=== PATIENT | male | born 1950 | race Caucasian/White ===

== ENCOUNTER → 2018-09-05 | Outpatient (CLI) | payer MEDICARE ==
[2015-03-10 07:00] VITALS: BP 132/81
[~2018-09-05] MED LIST: ADAL40PE SQ; ASPI325T11 PO; ATOR40TA59 PO; CLOP75TA PO; HYDR200T5 PO; LEFLUNOMIDE20 MG PO; LISI2.5T PO; METO25TA4 PO; PANT40TA5 PO; SULF500T7 PO; TERA5CAP3 PO; TRAM50TA PO
--- NOTE | 2018-09-05 11:24 | CARD ---
MR#: [id number] Date of Study: 09/05/2018 Ordering Physician: BRENDON BILLS, Referring Physician: BRENDON BILLS Tech: Margarita Wells RDCS APPROVED REPORT EXAM: Two-dimensional and M-mode echocardiogram with Doppler and color Doppler. Other Information Quality : GoodHR: 78bpm INDICATION EDEMA 2D DIMENSIONS RVDd3.2 (2.9-3.5cm)Left Atrium(2D)3.6 (1.6-4.0cm) IVSd1.1 (0.7-1.1cm)Aortic Root(2D)3.1 (2.0-3.7cm) LVDd5.4 (3.9-5.9cm)LVOT Diameter2.2 (1.8-2.4cm) PWd1.0 (0.7-1.1cm)LVDs4.3 (2.5-4.0cm) FS (%) 19.8 %SV55.6 ml Aortic Valve AoV Peak Slim.157.1cm/sAoV VTI29.7cm AO Peak GR.9.9mmHgLVOT Peak Slim.101.0cm/s AO Mean GR.5mmHgAVA (VMAX)2.34cm2 OTIS (VTI)2.30cm2 Mitral Valve MV E Ofegqjow85.4cm/sMV DECEL MXOQ585fb MV A Hpvpnccl95.2cm/sE/A Ratio0.8 MV A Lygxxhkr889db Pulmonary Valve PV Peak Emmvsocq313.8cm/s Tricuspid Valve TR P. Tspwrujl750jn/sRAP XDEUWTQJ8toLs TR Peak Gr.36xyIlSGKM75vbNl Pulmonary Vein S1 Rqcfrkkh47.5cm/sD2 Kkxemyny95.8cm/s PVa tffxbuvf120hgno LEFT VENTRICLE The Left Ventricle is borderline dilated. There is borderline concentric left ventricular hypertrophy . The ejection fraction is moderate to moderately severely impaired. The Ejection Fraction is 30-35%. There is global hypokinesis of the left ventricle. Transmitral Doppler flow pattern is Grade I-abnor mal relaxation pattern. RIGHT VENTRICLE The right ventricle is normal size. There is normal right ventricular wall thickness. The right ventr icular systolic function is normal. ATRIA The left atrium size is normal. The right atrium size is normal. The interatrial septum is intact wit h no evidence for an atrial septal defect or patent foramen ovale as noted on 2-D or Doppler imaging. AORTIC VALVE The aortic valve is trileaflet. The aortic valve is normal in structure and function. Doppler and Col or Flow revealed no significant aortic regurgitation. There is no significant aortic valvular stenosi s. MITRAL VALVE The mitral valve is thickened but opens well. There is no evidence of mitral valve prolapse. There is no mitral valve stenosis. Doppler and Color-flow revealed mild mitral regurgitation. TRICUSPID VALVE The tricuspid valve is normal in structure and function. Doppler and Color Flow revealed no tricuspid valve regurgitation noted. There is no tricuspid valve prolapse or vegetation. There is no tricuspid valve stenosis. PULMONIC VALVE Pulmonic valve not well visualized. GREAT VESSELS The aortic root is normal in size. The ascending aorta is normal in size. The IVC is normal in size a nd collapses >50% with inspiration. PERICARDIAL EFFUSION There is no evidence of significant pericardial effusion. Critical Notification Critical Value: No <Conclusion> The Left Ventricle is borderline dilated. The ejection fraction is moderate to moderately severely impaired. The Ejection Fraction is 30-35%. There is global hypokinesis of the left ventricle. There is borderline concentric left ventricular hypertrophy. There is no significant aortic valvular stenosis. Doppler and Color Flow revealed no significant aortic regurgitation. Doppler and Color-flow revealed mild mitral regurgitation. Doppler and Color Flow revealed no tricuspid valve regurgitation noted. Signed by : Cesar Ruiz MD Electronically Approved : 09/05/2018 11:23:01
--- NOTE | 2018-09-06 12:23 | RAD ---
MR#: [id number] Date of Study: 09/05/2018 Ordering Physician: BRENDON BILLS, Referring Physician: BRENDON BILLS Tech: Dolly Cummins, RUBEN, RVT, RTR APPROVED REPORT Patient Location: OUT-PATIENT Indications bilateral Leg pain with edema Risk Factors Diabetes VELOCITY AND DOPPLER WAVEFORM ANALYSIS RIGHT cm/secWaveformSeverity LEFT cm/secWaveform Severity pCFA 172.5TriphasicpCFA 199.0Triphasic dCFA 155.6TriphasicdCFA 152.7Triphasic Prof Fem Art. 128.3TriphasicProf Fem Art. 128.9Triphasic Fem Art Prox. 143.0TriphasicFem Art Prox. 132.2Triphasic Fem Art Mid. 114.0TriphasicFem Art Mid. 120.6Triphasic Fem Art Dist. 109.9TriphasicFem Art Dist. 97.5Triphasic Pop Art(AK) 73.3TriphasicPop Art(AK) 85.9Triphasic TIE BUCKER Prox. 87.4TriphasicPTA Prox. 50.0Triphasic TIE BUCKER Dist. 123.1TriphasicPTA Dist. 137.8Triphasic Per Art Prox. 76.5TriphasicPer Art Prox. 106.6Triphasic ZEE Prox. 87.4TriphasicATA Prox. 105.3Triphasic DPA 138.8TriphasicDPA 138.8Triphasic Findings Grayscale images of the bilateral lower extremity arterial vessels were obtained and did not reveal a ny evidence of significant obstructive plaque. Spectral waveforms are grossly within normal limits bilaterally with mostly triphasic waveforms. Velo cities are minimally elevated in the bilateral common femoral arteries and the below-knee vessels at the level of the anterior tibial artery and dorsalis pedis artery but no focal obstruction is noted. Critical Notification Critical Value: No <Conclusion> 1. No focal high-grade disease noted in the bilateral lower extremity arterial vessels. Signed by : Issa Hein, Electronically Approved : 09/06/2018 12:21:57
== END | disposition home or self-care (01) ==
LOC: US 10:00
PROVIDERS: ATTEND Internal Medicine Cardiovascular Disease
DX: I34.0 Nonrheumatic mitral (valve) insufficiency (principal); R60.0 Localized edema
CPT/HCPCS: 93306; 93925

== ENCOUNTER 2018-10-09 06:25 | Outpatient (CLI) | payer MEDICARE ==
[~2018-10-09] VITALS: Ht 172.7 cm; Wt 88.5 kg
[2018-10-09] VITALS (12 sets, daily range): BP systolic 107–140; BP diastolic 58–74
[~2018-10-09 06:25] MED LIST changes: -PANT40TA5 PO; +PANT40TA77 PO
[2018-10-09] MEDS ORDERED: METO5TAB4 PO (07:01)
[2018-10-09] MEDS ORDERED: LOSA25TA PO (07:01)
[2018-10-09] MEDS ORDERED: FURO40TA4 PO (07:01)
[2018-10-09] MEDS ORDERED: ASPI325T8 PO (07:01)
[2018-10-09] MEDS ORDERED: ADAL40PE SQ (07:02)
[2018-10-09 07:03] LABS: HEMATOCRIT 40.3 % (39.0-53.0); HEMOGLOBIN 13.8 g/dL (13.0-17.5); RED BLOOD COUNT 4.55 x10^6/uL (4.30-5.70); RED CELL DISTRIBUTION WIDTH 13.2 % (11.5-14.5); WHITE BLOOD COUNT 8.7 x10^3/uL (4.0-11.0)
[2018-10-09] MEDS ORDERED: LIDOCAINE 1% PF 2 ML VIAL. ONE (07:06)
[2018-10-09] MEDS ORDERED: IODIXANOL 320 MG/ML 100 ML VIAL. ONE (07:06)
[2018-10-09 07:13] LABS: PROTHROMBIN TIME PATIENT 14.2 SEC (11.7-14.0)
[2018-10-09 07:14] LABS: CALCIUM 8.9 mg/dL (8.5-10.1); CREATININE 1.2 mg/dL (0.7-1.3); GFR 60.4; POTASSIUM 3.5 mmol/L (3.5-5.1)
[2018-10-09] MEDS ORDERED: fentaNYL PF VIAL 100 MCG/2 ML VIAL ONE (07:28)
[2018-10-09] MEDS ORDERED: HEPARIN for IV BOLUS 10,000 UNIT/10 ML VIAL. ONE (07:29)
[2018-10-09] MEDS ORDERED: NITROGLYCERIN 200 MCG/2 ML SYRINGE FOR CATH/VASC LAB. ONE (07:29)
[2018-10-09] MEDS ORDERED: MIDAZOLAM HCL/PF 2 MG/2 ML VIAL. ONE (07:29)
[2018-10-09] MEDS ORDERED: VERAPAMIL 5 MG/2 ML VIAL. ONE (07:29)
[2018-10-09] MEDS ORDERED: LIDOCAINE 1% PF 2 ML VIAL. INJ ONE (08:15)
[2018-10-09] MEDS ORDERED: IODIXANOL 320 MG/ML 100 ML VIAL. IART ONE (08:15)
[2018-10-09] MEDS ORDERED: NITROGLYCERIN 200 MCG/2 ML SYRINGE FOR CATH/VASC LAB. IART ONE (08:15)
[2018-10-09] MEDS ORDERED: MIDAZOLAM HCL/PF 2 MG/2 ML VIAL. IV ONE (08:15)
[2018-10-09] MEDS ORDERED: CONTRAST GIVEN. MC PRN (08:15)
[2018-10-09] MEDS ORDERED: VERAPAMIL 5 MG/2 ML VIAL. IART ONE (08:15)
[2018-10-09] MEDS ORDERED: HEPARIN for IV BOLUS 10,000 UNIT/10 ML VIAL. IART ONE (08:15)
[2018-10-09] MEDS ORDERED: fentaNYL PF VIAL 100 MCG/2 ML VIAL IV ONE (08:15)
[2018-10-09] MEDS ORDERED: LIDOCAINE 1% PF 30 ML VIAL. ONE (08:20)
--- NOTE | 2018-10-09 08:53 | PDOC ---
MODERATE SEDATION ASSESSMENT RISKS/ALTERNATIVES Risks/Alternatives Risks and alternatives of this type of sedation and procedure discussed with: RISK/ALTERNATIVES: Patient H & P ON CHART H & P H & P on chart and reviewed for co-morbid conditions and appropriate labs. H&P ON CHART: Yes STATUS PREG STATUS ASSESSED: N/A MEDS/ALLERGIES REVIEWED Meds/Allergies Reviewed Medications and Allergies including time and route of recently administered narcotics and sedatives. MEDS/ALLERGIES REVIEWED: Yes ASA RATING ASA RATING: II AIRWAY ASSESSMENT Airway Assessment Airway patency, oral function limitations, presence of caps, crowns, dentures, partials, and ability to extend neck assessed. AIRWAY ASSESSMENT: Yes MALLAMPATI SCORE MALLAMPATI SCORE: II PRE-SEDATION ASSESSMENT PRE-SEDATION ASSESSMENT: Yes BRENDON BILLS MD Oct 09, 2018 08:53
[2018-10-09] MEDS ORDERED: LIDOCAINE 1% PF 30 ML VIAL. INJ ONE (09:00)
[2018-10-09] MEDS ORDERED: NITROGLYCERIN SUBLINGUAL 0.4 MG BOTTLE OF 25. SL PRN (09:00)
[2018-10-09] MEDS ORDERED: 0.9 % SODIUM CHLORIDE 10 ML DISP.SYRIN. IV PRN (09:00)
--- NOTE | 2018-10-09 09:09 | CARD ---
MR#: [id number] Date of Study: 10/09/2018 Ordering Physician: BRENDON MCKNIGHT, Referring Physician: BRENDON MCKNIGHT Tech: RT Juwan (R) APPROVED REPORT Technologist: RT Juwan (R) Nurse: Randi Jewell RN Procedure(s) performed: Left heart catheterization, selective coronary angiography and left ventricul ography Sedation Time: 42 Minutes INDICATION The indication(s) include : Cardiomyopathy. PROCEDURE NARRATIVE After explaining the risks, benefits and alternative options, informed consent was obtained from boy ent. Patient was brought to the cardiac Developmental Mathematics Instructor and his right groin was prepped and draped in the us ual fashion. 20 mL of 2% lidocaine was infiltrated into the skin and subcutaneous tissues for local a nesthesia. Arterial access was obtained in the right common femoral artery and a 6 [place] sheath was inserted. 6 [place] JL4 and 6 [place] JR4 catheters were used to perform selective angiography of the l eft and right coronary arteries. 6 [place] pigtail catheter was used to perform left ventriculography. Patient tolerated the procedure well. Hemostasis was achieved using Angio-Seal. There were no immedi ate complications. FINDINGS 1. Hemodynamics: Left ventricular end-diastolic pressure 17 mmHg. No pullback gradient across the a ortic valve. 2. Left ventriculography: Moderate left ventricle systolic dysfunction with ejection fraction estim ated at 30-35%. No significant mitral regurgitation seen. 3. Coronary angiography: a. The left main coronary artery arose from the left sinus of Valsalva, gave rise to the left anteri or descending and left circumflex arteries and did not show any significant stenosis. b. The left anterior descending artery did not show any significant stenosis. c. The left circumflex artery did not show any significant stenosis. d. The right coronary artery arose from the right sinus of Valsalva and showed widely patent stent i n the midsegment. Conclusion 1. Widely patent previously placed stent in the right coronary artery without any significant stenos is. 2. Moderate left ventricle systolic dysfunction with ejection fraction estimated at 30-35%. Recommendations Optimization of medical therapy for nonischemic cardiomyopathy. Repeat 2-D echo in 3 months to evaluate the need for AICD implantation. Signed by : Brendon Mcknight, Electronically Approved : 10/09/2018 09:07:05
[2018-10-09] MEDS ORDERED: IV 1/2 NORMAL SALINE 1,000 ML IV SCH (09:30)
--- NOTE | 2018-10-09 13:16 | NUR ---
discharge instructions reviewed with patient and family. pt stated understanding. Pt tolerated PO and ambulated without difficulty. Pt home with family
== END 2018-10-09 13:18 | disposition home or self-care (01) ==
LOC: CCL 06:25
PROVIDERS: ATTEND Internal Medicine Cardiovascular Disease
DX: I42.9 Cardiomyopathy, unspecified (principal); I11.0 Hypertensive heart disease with heart failure; I50.33 Acute on chronic diastolic (congestive) heart failure; M06.9 Rheumatoid arthritis, unspecified; I44.7 Left bundle-branch block, unspecified; E78.5 Hyperlipidemia, unspecified; Z86.79 Personal history of other diseases of the circulatory system; Z98.890 Other specified postprocedural states; Z79.01 Long term (current) use of anticoagulants; Z79.899 Other long term (current) drug therapy; Z87.891 Personal history of nicotine dependence; Z88.1 Allergy status to other antibiotic agents; Z88.8 Allergy status to other drugs, medicaments and biological substances; Z88.0 Allergy status to penicillin; Z91.030 Bee allergy status
CPT/HCPCS: 36415; 80048; 85027; 85610; 93458; 99152; 99153; C1769; C1892; J1644; J2250; J3010; Q9967; C1760; G0269; C1771

== ENCOUNTER 2019-02-19 13:30 | Inpatient (IN) | payer MEDICARE ==
[2019-02-19] VITALS (11 sets, daily range): BP systolic 117–173; BP diastolic 61–86
[~2019-02-19] VITALS: Ht 172.7 cm; Wt 91.3 kg
[~2019-02-19 13:30] MED LIST changes: +ASPI325T8 PO; +FURO40TA4 PO; +IV RINGERS,LACTATED 1000ML 1,000 ML IV SCH; +LOSA25TA PO; +METO5TAB4 PO; +PANT40TA5 PO; -PANT40TA77 PO
[2019-02-19] MEDS ORDERED: BACITRACIN 50,000 UNIT in IV NORMAL SALINE 250ML 250 ML IRR ONE (14:00)
--- NOTE | 2019-02-19 14:10 | EKG ---
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
[2019-02-19] MEDS ORDERED: VANCOMYCIN 1GM IVPB FOR OMNI 250 ML IV ONE (14:15)
[2019-02-19 14:17] LABS: HEMATOCRIT 43.1 % (39.0-53.0); HEMOGLOBIN 14.1 g/dL (13.0-17.5); RED BLOOD COUNT 4.99 x10^6/uL (4.30-5.70); WHITE BLOOD COUNT 8.3 x10^3/uL (4.0-11.0)
[2019-02-19] MEDS ORDERED: PROPOFOL 20 ML IV ONE (14:33)
[2019-02-19] MEDS ORDERED: PROPOFOL 50 ML IV ONE (14:33)
[2019-02-19] MEDS ORDERED: MIDAZOLAM HCL/PF 2 MG/2 ML VIAL. ONE ×3 (14:34→15:40)
[2019-02-19 14:36] LABS: CALCIUM 9.2 mg/dL (8.5-10.1); GFR 74.5; POTASSIUM 4.2 mmol/L (3.5-5.1)
[2019-02-19] MEDS ORDERED: LIDOCAINE 2%/EPI 1:100,000 20 ML VIAL. ONE (14:51)
[2019-02-19] MEDS ORDERED: VANCOMYCIN 1GM IVPB FOR OMNI 250 ML ONE (15:00)
[2019-02-19] MEDS ORDERED: IODIXANOL 320 MG/ML 100 ML VIAL. ONE (15:03)
[2019-02-19] MEDS ORDERED: LIDOCAINE 2%/EPI 1:100,000 20 ML VIAL. IJ ONE (15:30)
[2019-02-19] MEDS ORDERED: fentaNYL PF VIAL 100 MCG/2 ML VIAL ONE (15:34)
--- NOTE | 2019-02-19 16:55 | NUR ---
Patient to rn cardiac cath for Internal Defibrillator placement patient had episode of Vfib at 1600, shocked X1 at 200J with successful return to sinus rhythm. Anesthesia at bedside during entire case for all sedation and monitoring.
[2019-02-19] MEDS ORDERED: CONTRAST GIVEN. MC PRN (17:00)
[2019-02-19] MEDS ORDERED: IODIXANOL 320 MG/ML 100 ML VIAL. IART ONE (17:00)
[2019-02-19] MEDS ORDERED: NO ANTICOAGULANT THERAPY. MC PRN (17:00)
--- NOTE | 2019-02-19 18:10 | RAD ---
AP portable chest radiograph 02/19/2019 Clinical History: Post pacemaker placement. An AP erect portable digital radiograph of the chest was obtained. Comparison study is dated 10/04/2018. A left-sided pacemaker has been placed. Leads extend to overlie the right atrium and right ventricle of heart. The cardiac silhouette is borderline enlarged. The thoracic aorta is mildly tortuous. No acute pulmonary infiltrate is seen. No pleural effusion or pneumothorax is noted. The osseous structures are unchanged. Impression: Interval placement of a left-sided pacemaker. No pneumothorax is seen. Electronically signed by: Donald Box MD (02/19/2019 6:06 PM) [facility]
[2019-02-19] MEDS ORDERED: traMADol 50 MG TABLET PO PRN (19:15)
[2019-02-19] MEDS ORDERED: TERAZOSIN 5 MG CAPSULE. PO SCH (21:00)
[2019-02-19] MEDS: LUBIPROSTONE 8 MCG CAPSULE PO SCH (21:49)
[2019-02-19] MEDS: HYDROXYCHLOROQUINE 200 MG TABLET PO SCH (21:50)
[2019-02-19] MEDS: sulfaSALAzine 500 MG TABLET PO SCH (21:54)
[2019-02-20] MEDS ORDERED: VANCOMYCIN 1 GM in IV DEXTROSE 5% 250 ML IV ONE (02:00)
[2019-02-20 03:30] VITALS: BP 161/80
[2019-02-20 07:00] VITALS: BP 157/83
--- NOTE | 2019-02-20 07:43 | CARD ---
MR#: [id number] Date of Study: 02/19/2019 Ordering Physician: BRENDON MCKNIGHT, Referring Physician: BRENDON MCKNIGHT, Tech: APPROVED REPORT EXAM Successful implantation of Biotronik biventricular implantable cardioverter defibrillator (Bi-V ICD/C RT-D) with defibrillation thresholds measurement of the time of implantation. INDICATIONS Primary prevention of sudden cardiac and cardiac resynchronization therapy in a patient with ch ronic systolic heart failure, ischemic cardiomyopathy and left bundle branch block. PROCEDURE After explaining the risks, benefits, and alternative options, informed consent was obtained from the patient. The patient was brought to the cardiac catheterization lab and the left chest and shoulder were prepp ed and draped in the usual fashion. 30 mL of 2% lidocaine was infiltrated into the skin and subcutaneous tissues for local anesthesia. An incision was made over the left infraclavicular fossa and using blunt dissection and cautery a pocke t was created. Venous access was obtained in the left subclavian vein and 9 Indonesian CS sheath was inse rted. Contrast injections were performed within the right atrium using the CASS2 catheter, the langford ry sinus ostium engaged and the sheath advanced. With the balloontipped catheter inflated within the coronary sinus, a venogram was obtained to identify the appropriate vein for placement of left ventri cular lead. Patient went into ventricular fibrillation while positioning the left ventricular lead in one of the cardiac veins and was successfully defibrillated. A Biotronik quadripolar left ventricula r lead model Sentus ProMRI OTW QPL , serial #[id number] was positioned in the cardiac vein under fluoro scopy guidance. Venous access was then obtained again and 10.5 and 6 Indonesian sheaths inserted. A Biotronik bipolar act juan j fixation right ventricular lead model Plexa ProMRI SD, serial #[id number] was positioned in the rig ht ventricular apex under fluoroscopy guidance. Following this, a Biotronik bipolar active fixation r ight atrial lead, model Solia, serial #[id number] was positioned in the right atrial appendage under fl uoroscopy guidance. The leads were all secured into place and attached to a Biotronik biventricular I CD/STEEL ERECTING PUSHER-D generator model Ilivia 7 HF-T QP DF4 IS4 ProMRI. This was placed in the pocket was subsequen tly closed in 3 layers. Hemostasis was secured. Ventricular fibrillation was then induced to check the defibrillation threshold. Patient successfully converted to sinus rhythm with 15 J shock therapy. At the end of procedure, the left ventricular gopi d showed a sensing amplitude of 19.6 mV, impedance of 962 ohms and a threshold of 1.4 V. The right ve ntricular lead showed a sensing amplitude of 17.8 mV, impedance of 656 ohms and a threshold of 0.7 V. The right atrial lead showed a sensing amplitude of 2.3 mV, impedance of 560 ohms and a threshold of 1.5 V. Patient tolerated the procedure well. There were no immediate complications. CONCLUSION Successful implantation of Biotronik biventricular ICD/STEEL ERECTING PUSHER-D for primary prevention of sudden cardiac and cardiac resynchronization therapy in a patient with ischemic cardio myopathy, chronic syst olic heart failure and left bundle branch block. Defibrillation thresholds were measured at the time of implantation. Signed by : Brendon Mcknight, Electronically Approved : 02/20/2019 07:43:03
[2019-02-20] MEDS ORDERED: LUBIPROSTONE 8 MCG CAPSULE PO SCH (08:00)
[2019-02-20] MEDS: LUBIPROSTONE 8 MCG CAPSULE PO SCH (08:36)
[2019-02-20] MEDS: HYDROXYCHLOROQUINE 200 MG TABLET PO SCH (08:36)
[2019-02-20] MEDS ORDERED: METOPROLOL TART IMMED RELEASE 25 MG TABLET. PO SCH (09:00)
[2019-02-20] MEDS ORDERED: ATORVASTATIN CALCIUM 40 MG TABLET. PO SCH (09:00)
[2019-02-20] MEDS ORDERED: PANTOPRAZOLE 40 MG TABLET.DR. PO SCH (09:00)
[2019-02-20] MEDS ORDERED: CLOPIDOGREL BISULFATE 75 MG TABLET PO SCH (09:00)
[2019-02-20] MEDS ORDERED: ASPIRIN 325 MG TABLET PO SCH (09:00)
[2019-02-20] MEDS ORDERED: LOSARTAN POTASSIUM 25 MG TABLET. PO SCH (09:00)
--- NOTE | 2019-02-20 10:36 | NUR ---
SS following for discharge planning. SS reviewed pt chart. Pt is from home and is currently on room air. No discharge needs noted at this time. SS will continue to follow for discharge planning.
[2019-02-20 11:00] VITALS: BP 128/69
[2019-02-20] MEDS: sulfaSALAzine 500 MG TABLET PO SCH (11:12)
[2019-02-20 11:14] VITALS: BP 128/69
--- NOTE | 2019-02-20 11:45 | RAD ---
Chest, 2 views, 02/20/2019: HISTORY: Post pacemaker insertion Comparison is made to yesterday's study. A left-sided transvenous pacing device with 3 leads is unchanged. The heart size and pulmonary vascularity are normal. No pulmonary infiltrate is seen. There is no evidence of pneumothorax or significant pleural fluid. Moderate hypertrophic spurring is present in the spine. IMPRESSION: No acute cardiopulmonary abnormality is detected. Electronically signed by: Serge Guillen MD (02/20/2019 11:42 AM) [facility]
--- NOTE | 2019-02-20 13:32 | DISCH ---
DISCHARGE INSTRUCTIONS Condition on Discharge Condition on Discharge: Stable Activity After Discharge Activity Instructions for Disc: Activity as tolerated Lifting Instructions after Dis: No heavy lifting, Do not lift >10 pounds Driving Instructions after Dis: Do not drive Weight Bearing Status after Di: Full weight bearing, As tolerated Diet after Discharge Diet after Discharge: Cardiac Diet Texture: Regular Swallowing Supervision: None needed Wound Incision Care Wound/Incision Care: Other, see below (keep pacemaker site clean and dry) Checks after Discharge Checks after discharge: Check blood press - daily Contacting the DRJyoti after DC Call your doctor for: Concerns you may have BUDDY GLEZ APRN February 20, 2019 13:32
--- NOTE | 2019-02-20 15:30 | NUR ---
Discharge Note: MARILIA MUHAMMAD [address] Discharge instructions and discharge home medications reviewed with Patient and chloe Castillo a copy given. All questions have been answered and understanding verbalized. The following instructions and handouts were given: Cardiac diet, Pacemaker/ICD Pt handout, and low sodium diet. Discontinued iv lines and catheter intact. Patient discharged to home with self-care via private vehicle.
--- NOTE | 2019-02-20 16:54 | PDOC3 ---
Discharge Summary Visit Information Date of Admission: February 19, 2019 Date of Discharge: February 20, 2019 Admitting Diagnosis: nonischemic cardiomyopathy Final Diagnosis Nonischemic cardiomyopathy Coronary artery disease Hypertension Hyperlipidemia Brief Hospital Course Allergies Allergies Coded Allergies Type Severity Reaction Last Updated Verified Penicillins Allergy Severe Anaphylaxis 03/09/15 Yes venom-wasp Allergy Severe Anaphylaxis 03/09/15 Yes NSAIDS (Non-Steroidal Anti-Inflamma Allergy Intermediate Unknown 03/09/15 Yes Vital Signs Vital Signs Date Time Temp Pulse Resp B/P (MAP) Pulse Ox O2 Delivery O2 Flow Rate FiO2 02/20/19 11:14 67 128/69 02/20/19 11:00 98.2 18 92 Room Air 2.0 98.2 Lab Results Laboratory Tests Test 02/19/19 14:12 White Blood Count 8.3 x10^3/uL (4.0-11.0) Red Blood Count 4.99 x10^6/uL (4.30-5.70) Hemoglobin 14.1 g/dL (13.0-17.5) Hematocrit 43.1 % (39.0-53.0) Mean Corpuscular Volume 86 fL (79-100) Mean Corpuscular Hemoglobin 28 pg (25-35) Mean Corpuscular Hemoglobin Concent 33 g/dL (31-37) Red Cell Distribution Width 14.0 % (11.5-14.5) Platelet Count 233 x10^3/uL (140-400) Prothrombin Time 14.0 SEC (11.7-14.0) Prothromb Time International Ratio 1.1 (0.8-1.1) Activated Partial Thromboplast Time 27 SEC (24-38) Sodium Level 142 mmol/L (136-145) Potassium Level 4.2 mmol/L (3.5-5.1) Chloride Level 105 mmol/L (98-107) Carbon Dioxide Level 29 mmol/L (21-32) Anion Gap 8 (6-14) Blood Urea Nitrogen 17 mg/dL (8-26) Creatinine 1.0 mg/dL (0.7-1.3) Estimated GFR (Cockcroft-Gault) 74.5 Glucose Level 103 mg/dL (70-99) Calcium Level 9.2 mg/dL (8.5-10.1) Brief Hospital Course Mr. Avila is a 68 old male with history of nonischemic cardiomyopathy, LVE F 35% and left bundle branch block with QRS interval 168 ms underwent successful biventricular ICD/PLC TECHNICIAN-D implantation for primary prevention of sudden cardiac and cardiac resynchronization therapy. His defibrillation thresholds were measured at the time of implantation. He remained hemodynamically stable during his hospital stay. Chest x-ray did not show any pneumothorax and device check prior to discharge showed normal function. He will follow-up with our office for wound check in 1-2 weeks. Discharge Information Condition at Discharge: Stable Follow Up: Weeks (1-2) Disposition/Orders: D/C to Home Scheduled Adalimumab (Humira) 40 Mg/0.8 Ml Pen.ij.kit, 1 SYR SQ Q2WKS for arthritis, #6 Ref 3 (Reported) Entered as Reported by: TORI COPELAND on 10/09/18701 Aspirin (Aspirin) 325 Mg Tablet, 1 TAB PO DAILY for cad, #90 Ref 3 (Reported) Entered as Reported by: TORI COPELAND on 10/09/18700 Last Taken: Unknown Dose on 02/19/19 Last Action: Continued on 02/19/191919 by LENA LYNCH RN Atorvastatin Calcium (Atorvastatin Calcium) 40 Mg Tablet, 1 TAB PO DAILY, #30 Ref 5 (Reported) Entered as Reported by: PRABHJOT BOSS on 03/09/15945 Last Taken: Unknown Dose on 02/19/19 Last Action: Continued on 02/19/191919 by LENA LYNCH RN Clopidogrel Bisulfate (Clopidogrel) 75 Mg Tablet, 1 TAB PO DAILY, #90 Ref 1 (Reported) Entered as Reported by: PRABHJOT BOSS on 03/09/15945 Last Taken: Unknown Dose on 02/19/19 Last Action: Continued on 02/19/191919 by LENA LYNCH RN Furosemide (Furosemide) 40 Mg Tablet, 40 MG PO DAILY for edema, (Reported) Entered as Reported by: TORI COPELAND on 10/09/18700 Hydroxychloroquine Sulfate (Hydroxychloroquine Sulfate) 200 Mg Tablet, 1 TAB PO BID, #180 Ref 1 (Reported) Entered as Reported by: PRABHJOT BOSS on 03/09/15945 Last Taken: Unknown Dose on 02/19/19 Last Action: Converted on 02/19/191919 by LENA LYNCH RN Losartan Potassium (Cozaar ) 25 Mg Tablet, 12.5 MG PO DAILY for HYPERTENSION, (Reported) Entered as Reported by: TORI COPELAND on 10/09/18700 Last Taken: Unknown Dose on 02/19/19 Last Action: Continued on 02/19/191919 by LENA LYNCH RN Metolazone (Metolazone) 5 Mg Tablet, 5 MG PO DAILY for edema, #30 Ref 0 (Reported) Entered as Reported by: TORI COPELAND on 10/09/18700 Metoprolol Tartrate (Metoprolol Tartrate) 25 Mg Tablet, 0.5 TAB PO DAILY for htn, #180 Ref 1 (Reported) Entered as Reported by: PRABHJOT BOSS on 03/09/15945 Last Taken: Unknown Dose on 02/19/19 Last Action: Continued on 02/19/191919 by LENA LYNCH RN Pantoprazole Sodium (Pantoprazole Sodium) 40 Mg Tablet.dr, 1 TAB PO DAILY, #30 Ref 3 (Reported) Entered as Reported by: PRABHJOT BOSS on 03/09/15945 Last Taken: Unknown Dose on 02/19/19 Last Action: Continued on 02/19/191919 by LENA LYNCH RN Sulfasalazine (Sulfasalazine) 500 Mg Tablet, 1,000 MG PO BID, (Reported) Entered as Reported by: PRABHJOT BOSS on 03/09/15945 Last Taken: Unknown Dose on 02/19/19 Last Action: Converted on 02/19/191919 by LENA LYNCH RN Terazosin Hcl (Terazosin Hcl) 5 Mg Capsule, 1 CAP PO QHS, #30 Ref 5 (Reported) Entered as Reported by: PRABHJOT BOSS on 03/09/15945 Last Taken: Unknown Dose on 02/19/19 Last Action: Converted on 02/19/191919 by LENA LYNCH RN Scheduled PRN Tramadol Hcl (Tramadol Hcl) 50 Mg Tablet, 50 MG PO Q6H PRN for PAIN, (Reported) Entered as Reported by: PRABHJOT BOSS on 03/09/15945 Last Action: Continued on 02/19/191919 by ABIMBOLA WRIGHT VENKAT R MD February 20, 2019 16:53
== END 2019-02-20 15:12 | disposition home or self-care (01) | DRG 226 ==
LOC: SURG 13:30 → 2 SOUTH 14:58 → OBSVTOIN 14:58
PROVIDERS: ADMIT Internal Medicine Cardiovascular Disease; ATTEND Internal Medicine Cardiovascular Disease
PROC: 02HK3KZ Insertion of Defibrillator Lead into Right Ventricle, Percutaneous Approach (ICD-10-PCS; 2019-02-19)
PROC: 02HL3KZ Insertion of Defibrillator Lead into Left Ventricle, Percutaneous Approach (ICD-10-PCS; 2019-02-19)
PROC: 02H63KZ Insertion of Defibrillator Lead into Right Atrium, Percutaneous Approach (ICD-10-PCS; 2019-02-19)
PROC: 5A2204Z Restoration of Cardiac Rhythm, Single (ICD-10-PCS; 2019-02-19)
PROC: 0JH609Z Insertion of Cardiac Resynchronization Defibrillator Pulse Generator into Chest Subcutaneous Tissue and Fascia, Open Approach (ICD-10-PCS; principal; 2019-02-19 15:00)
DX: I42.9 Cardiomyopathy, unspecified (principal); I49.01 Ventricular fibrillation; I50.22 Chronic systolic (congestive) heart failure; I11.0 Hypertensive heart disease with heart failure; I25.10 Atherosclerotic heart disease of native coronary artery without angina pectoris; E78.5 Hyperlipidemia, unspecified; I44.7 Left bundle-branch block, unspecified; Y92.89 Other specified places as the place of occurrence of the external cause; Z88.0 Allergy status to penicillin; Z88.8 Allergy status to other drugs, medicaments and biological substances
CPT/HCPCS: 33225; 33249; 36415; 71045; 71046; 80048; 85027; 85610; 85730; 93005; 93566; 93641; C1769; C1882; C1892; C1895; C1900; J2250; J2704; J3370; J3490; J7050; Q9967; J7030

== ENCOUNTER 2021-05-01 17:45 | Observation (INO) | payer MEDICARE, OTHER ==
[~2021-05-01] VITALS: Ht 172.7 cm; Wt 94.7 kg
[2021-05-01] VITALS (8 sets, daily range): BP systolic 110–122; BP diastolic 56–72
[~2021-05-01 17:45] MED LIST changes: -IV RINGERS,LACTATED 1000ML 1,000 ML IV SCH; +LEFL10TA13 PO; -LEFLUNOMIDE20 MG PO; -LISI2.5T PO; +LISI2.5T12 PO; -PANT40TA5 PO; +PANT40TA77 PO
--- NOTE | 2021-05-01 18:20 | PDOC1 ---
History and Physical Date of Admission Date of Admission DATE: 05/01/21 TIME: 18:03 Identification/Chief Complaint Chief Complaint AICD discharge Source Source: Patient History of Present Illness History of Present Illness Patient is a 70 year old man who presents to the ED after his AICD discharged today. Has a history of ischemic cardiomyopathy with a biventricular Biotronik device that was placed at [facility] by Dr. Mcknight in 2019. He was mowing his lawn on a riding mower and then began walking uphill home when he felt his AICD fire. He denies any significant associated symptoms, including na usea, vomiting, chest pain, or shortness of breath. He has never had an AICD fired before. He went to [facility] ER for evaluation, in ED his heart rate was apparently elevated at 10/04/2012 with a wide-complex rhythm. [facility] ED physician spoke with Dr. Mcknight, who recommended starting amiodarone and transferred to [facility], [facility] does not have a Biotronik interrogater. Labs taken at [facility] showed WBC 11.4, creatinine 1.4, troponin <0.017. Upon my evaluation of [facility] patient has no complaints states he feels fine. Will admit for further medical management. Past Medical History Past Medical History HTN, CAD, systolic CHF, RA Past Surgical History Past Surgical History Cardiac stent, pacer/AICD, back surgery, neck surgery Family History Family History: Hypertension Social History Smoke: Quit ALCOHOL: occassional Drugs: None Current Medications Current Medications Active Scripts Active Reported Humira (Adalimumab) 40 Mg/0.8 Ml Pen.ij.kit 1 Syr SQ Q2WKS Metolazone 5 Mg Tablet 5 Mg PO DAILY Furosemide 40 Mg Tablet 40 Mg PO DAILY Aspirin 325 Mg Tablet 1 Tab PO DAILY Cozaar (Losartan Potassium) 25 Mg Tablet 12.5 Mg PO DAILY Metoprolol Tartrate 25 Mg Tablet 0.5 Tab PO DAILY Pantoprazole Sodium 40 Mg Tablet.dr 1 Tab PO DAILY Tramadol Hcl 50 Mg Tablet 50 Mg PO Q6H PRN Clopidogrel (Clopidogrel Bisulfate) 75 Mg Tablet 1 Tab PO DAILY Atorvastatin Calcium 40 Mg Tablet 1 Tab PO DAILY Terazosin Hcl 5 Mg Capsule 1 Cap PO QHS Hydroxychloroquine Sulfate 200 Mg Tablet 1 Tab PO BID Sulfasalazine 500 Mg Tablet 1,000 Mg PO BID Allergies Allergies: Coded Allergies: Penicillins (Verified Allergy, Severe, Anaphylaxis, 03/09/15) venom-wasp (Verified Allergy, Severe, Anaphylaxis, 03/09/15) NSAIDS (Non-Steroidal Anti-Inflamma (Verified Allergy, Intermediate, Unknown, 03/09/15) "intolerance" ROS Review of System GENERAL: No history of weight change, weakness or fevers. SKIN: No bruising, hair changes or rashes. EYES: No blurred, double or loss of vision. NOSE AND THROAT: No history of nosebleeds, hoarseness or sore throat. HEART: Denies chest pain, denies palpitations. LUNGS: Denies cough, hemoptysis, wheezing or shortness of breath. GASTROINTESTINAL: Denies nausea, vomiting, abdominal pain. GENITOURINARY: Denies dysuria, frequency, urgency, hematuria. NEUROLOGIC: Denies history of numbness, tingling, tremor or weakness. PSYCHIATRIC: Denies anxiety, denies depression. ENDOCRINE: No history of heat or cold intolerance, polyuria or polydipsia. EXTREMITIES: Denies muscle weakness, joint pain, pain on walking or stiffness. Physical Exam Physical Exam General: Alert, Oriented X3, Cooperative, No acute distress HEENT: PERRLA, EOMI Lungs: Clear to auscultation, Normal air movement Heart: RRR, no murmurs, AICD left chest wall Cardiovascular: S1, S2 Abdomen: Obese abdomen, normal bowel sounds, Soft, No tenderness Extremities: No clubbing, No cyanosis Skin: No rashes, No significant lesion Neuro: Normal speech, Normal tone, Sensation intact Psych/Mental Status: Mental status NL, Mood NL VTE Prophylaxis Ordered VTE Prophylaxis Devices: No VTE Pharmacological Prophylaxi: Yes Assessment/Plan Assessment/Plan Ischemic cardiomyopathy with AICD ARSEN due to vasomotor nephropathy CAD HTN Plan: Will place consultation to Dr. Roxanna vines apparently aware of transfer to [place] and will plan on interrogating here Echocardiogram from 09/05/2018 showed EF 30-35% Who provide judicious IV fluids Resume home medications FEN - Cardiac diet PPX - Lovenox FULL CODE Dispo - OBS for above Patient names his daughter as his surrogate decision-maker Justifications for Admission Other Justification ELIO SKELTON MD May 01, 2021 18:20
[2021-05-01] MEDS ORDERED: HYDROcodone/APAP 5/325MG 1 TAB TABLET PO PRN (18:30)
[2021-05-01] MEDS ORDERED: ACETAMINOPHEN 325 MG TABLET. PO PRN (18:30)
[2021-05-01] MEDS ORDERED: IV NORMAL SALINE 250ML 250 ML IV ONE (18:30)
[2021-05-01] MEDS ORDERED: ONDANSETRON PF 4 MG/2 ML VIAL. IVP PRN (18:30)
[2021-05-01] MEDS ORDERED: MAGNESIUM HYDROXIDE 2,400 MG/30 ML ORAL.SUSP. PO PRN (18:30)
[2021-05-01] MEDS ORDERED: MAG HYDROX/ALUMINUM HYD/SIMETH 30 ML ORAL.SUSP PO PRN (18:30)
[2021-05-01] MEDS ORDERED: MORPHINE SULFATE 2 MG/ML INJ. IV PRN (18:30)
[2021-05-01] MEDS ORDERED: ZOLPIDEM 5 MG TABLET. PO PRN (18:30)
[2021-05-01] MEDS ORDERED: CALCIUM CARBONATE 500 MG TAB.CHEW PO PRN (18:30)
[2021-05-01] MEDS ORDERED: traMADol 50 MG TABLET PO PRN (18:45)
[2021-05-01] MEDS: AMIODARONE 450 MG in IV DEXTROSE 5% 250 ML IV PRN (19:00)
[2021-05-01] MEDS ORDERED: ENOXAPARIN 40 MG/0.4 ML SYRINGE. SQ SCH (19:00)
--- NOTE | 2021-05-01 19:30 | NUR ---
pt daughter at bedside assessment completed vss poc explained pt denied pain at time of assessment call light in reach will resume care and continue to monitor pt.
--- NOTE | 2021-05-01 19:45 | NUR ---
The patient, MARILIA MUHAMMAD, 70 y/o, M admitted by ELIO SKELTON MD, was given written information regarding hospital policies, unit procedures and contact persons. Pt A&OX4, SBA, vpaced on heart monitor. Amiodarone gtt kept going per Dr. Skelton. Per Dr. Skelton, beck to restart entresto dose once that dose is known. Report handed over to ABIMBOLA Muhammad (restaurant shift supervisor RN).
[2021-05-01] MEDS ORDERED: SACU1TAB7 PO (20:03)
[2021-05-01] MEDS ORDERED: TERAZOSIN 5 MG CAPSULE. PO SCH (21:00)
[2021-05-01] MEDS ORDERED: HYDROXYCHLOROQUINE 200 MG TABLET PO SCH (21:00)
[2021-05-01] MEDS ORDERED: AMITRIPTYLINE HCL 25 MG TABLET. PO SCH (21:00)
[2021-05-01] MEDS: SACUBITRIL/VALSARTAN 49/51MG TABLET. PO SCH (21:05)
[2021-05-01] MEDS: sulfaSALAzine 500 MG TABLET PO SCH (21:05)
[2021-05-02] VITALS (9 sets, daily range): BP systolic 99–159; BP diastolic 50–91
[2021-05-02] MEDS: AMIODARONE 450 MG in IV DEXTROSE 5% 250 ML IV PRN (01:38)
[2021-05-02] MEDS ORDERED: PANTOPRAZOLE 40 MG TABLET.DR. PO SCH ×2 (07:30→09:00)
[2021-05-02] MEDS ORDERED: ATORVASTATIN CALCIUM 40 MG TABLET. PO SCH (09:00)
[2021-05-02] MEDS ORDERED: METOPROLOL TART IMMED RELEASE 25 MG TABLET. PO SCH (09:00)
[2021-05-02] MEDS ORDERED: ASPIRIN 325 MG TABLET PO SCH (09:00)
[2021-05-02] MEDS ORDERED: metOLazone 2.5 MG TABLET PO SCH (09:00)
[2021-05-02] MEDS: SACUBITRIL/VALSARTAN 49/51MG TABLET. PO SCH (11:24)
[2021-05-02] MEDS: sulfaSALAzine 500 MG TABLET PO SCH (11:26)
--- NOTE | 2021-05-02 12:11 | PDOC2 ---
CONSULT Date of Consult Date of Consult DATE: 05/02/21 TIME: 12:10 Reason for Consult Reason for Consult: ICD shock therapy Referring Physician Referring Physician: Dr. 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 He denied any chest pain, orthopnea/PND, syncope. He denied any prior history of ICD shock therapies. He was transferred to [facility] for further management. 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-D implantation Hypertension Rheumatoid arthritis Hyperlipidemia Sleep apnea Past Surgical History Past Surgical History Biventricular ICD/WORKFORCE DEVELOPMENT VICE PRESIDENT-D implantation Prostate and neck surgeries Family History Family History Negative for premature coronary artery disease Family History: Hypertension Social History Social History Patient quit smoking several years ago, has 1-4 beers on a daily basis and denied any drug abuse Quit ALCOHOL: occassional Drugs: None Current Medications Current Medications Current Medications Sodium Chloride 250 ml @ 75 mls/hr 1X ONCE IV Last administered on 05/01/21at 21:03; Start 05/01/21 at 18:30; Stop 05/01/21 at 21:49; Status DC Ondansetron HCl (Zofran) 4 mg PRN Q6HRS PRN IVP NAUSEA/VOMITING; Start 05/01/21 at 18:30 Al Hydroxide/Mg Hydroxide (Mylanta Plus Xs) 30 ml PRN Q3HRS PRN PO HEARTBURN / GAS; Start 05/01/21 at 18:30 Calcium Carbonate/ Glycine (Tums) 500 mg PRN Q3HRS PRN PO UPSET STOMACH; Start 05/01/21 at 18:30 Zolpidem Tartrate (Ambien) 5 mg PRN QHS PRN PO INSOMNIA, MAY REPEAT IN 1HR; Start 05/01/21 at 18:30 Morphine Sulfate (Morphine Sulfate) 2 mg PRN Q1HR PRN IV PAIN; Start 05/01/21 at 18:30 Acetaminophen/ Hydrocodone Bitart (Lortab 5/325) 1 tab PRN Q4HRS PRN PO MILD PAIN 1-3; Start 05/01/21 at 18:30 Acetaminophen (Tylenol) 650 mg PRN Q6HRS PRN PO Headaches, Temp > 101.5F; Start 05/01/21 at 18:30 Magnesium Hydroxide (Milk Of Magnesia) 2,400 mg PRN Q12HR PRN PO CONSTIPATION; Start 05/01/21 at 18:30 Enoxaparin Sodium (Lovenox 40mg Syringe) 40 mg Q24H SQ Last administered on 05/01/21at 21:04; Start 05/01/21 at 19:00 Aspirin (Amalia Aspirin) 325 mg DAILY PO Last administered on 05/02/21at 11:24; Start 05/02/21 at 09:00 Atorvastatin Calcium (Lipitor) 40 mg DAILY PO Last administered on 05/02/21at 11:24; Start 05/02/21 at 09:00 Hydroxychloroquine Sulfate (Plaquenil) 200 mg BID PO ; Start 05/01/21 at 21:00; Stop 05/01/21 at 20:15; Status DC Metoprolol Tartrate (Lopressor) 12.5 mg DAILY PO Last administered on 05/02/21at 11:24; Start 05/02/21 at 09:00 Pantoprazole Sodium (Protonix) 40 mg DAILY PO ; Start 05/02/21 at 09:00; Status UNV Sulfasalazine (Azulfidine) 1,000 mg BID PO Last administered on 05/02/21at 11:26; Start 05/01/21 at 21:00 Terazosin HCl (Hytrin) 5 mg QHS PO Last administered on 05/01/21at 21:18; Start 05/01/21 at 21:00 Tramadol HCl (Ultram) 50 mg PRN Q6HRS PRN PO PAIN; Start 05/01/21 at 18:45 Metolazone (Zaroxolyn) 5 mg DAILY PO Last administered on 05/02/21at 11:25; Start 05/02/21 at 09:00 Amitriptyline HCl (Elavil) 50 mg QHS PO Last administered on 05/01/21at 21:05; Start 05/01/21 at 21:00 Pantoprazole Sodium (Protonix) 40 mg DAILYAC PO Last administered on 05/02/21at 05:39; Start 05/02/21 at 07:30 Sacubitril/ Valsartan (Entresto 49 Mg-51 Mg) 1 tab BID PO Last administered on 05/02/21at 11:24; Start 05/01/21 at 21:00 Amiodarone HCl 450 mg/Dextrose 259 ml @ 0 mls/hr CONT PRN IV . Last administered on 05/02/21at 01:38; Start 05/01/21 at 20:15 Active Scripts Active Reported Entresto 49 mg-51 mg Tablet (Sacubitril/Valsartan) 1 Each Tablet 1 Each PO BID Humira (Adalimumab) 40 Mg/0.8 Ml Pen.ij.kit 1 Syr SQ Q2WKS Metolazone 5 Mg Tablet 5 Mg PO DAILY Furosemide 40 Mg Tablet 40 Mg PO DAILY Aspirin 325 Mg Tablet 1 Tab PO DAILY Cozaar (Losartan Potassium) 25 Mg Tablet 12.5 Mg PO DAILY Metoprolol Tartrate 25 Mg Tablet 0.5 Tab PO DAILY Pantoprazole Sodium (Pantoprazole Sodium) 40 Mg Tablet.dr 1 Tab PO DAILY Tramadol Hcl 50 Mg Tablet 50 Mg PO Q6H PRN Clopidogrel (Clopidogrel Bisulfate) 75 Mg Tablet 1 Tab PO DAILY Atorvastatin Calcium 40 Mg Tablet 1 Tab PO DAILY Terazosin Hcl 5 Mg Capsule 1 Cap PO QHS Hydroxychloroquine Sulfate 200 Mg Tablet 1 Tab PO BID Sulfasalazine 500 Mg Tablet 1,500 Mg PO BID Allergies Allergies: Coded Allergies: Penicillins (Verified Allergy, Severe, Anaphylaxis, 03/09/15) venom-wasp (Verified Allergy, Severe, Anaphylaxis, 03/09/15) NSAIDS (Non-Steroidal Anti-Inflamma (Verified Allergy, Intermediate, Unknown, 03/09/15) "intolerance" ROS PSYCHOLOGICAL ROS: No: Hallucinations Eyes: No Loss of vision HEENT: No: Epistaxis Respiratory: No: Hemoptysis, Shortness of breath Cardiovascular: yes Palpitations Gastrointestinal: Yes Nausea Genitourinary: No Hematuria Neurological: No Seizures Skin: No Rash Physical Exam General: Alert, Oriented X3 HEENT: Atraumatic Lungs: Clear to auscultation Heart: Regular rate Abdomen: Soft Extremities: No edema Neuro: Normal speech Vitals VITALS Vital Signs Date Time Temp Pulse Resp B/P (MAP) Pulse Ox O2 Delivery O2 Flow Rate FiO2 05/02/21 11:24 79 159/91 05/02/21 10:49 98.0 16 97 Room Air 98.0 Assessment/Plan Assessment/Plan 1. 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 Patient denied any chest pain and myocardial infarction has been ruled out. 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 Change amiodarone to PO for antiarrhythmic therapy. Recent 2D echo in February 2021 showed normalized LVEF 55 to 60%. Lexiscan nuclear stress test in August 2020 did not show any significant ischemia. We will continue to monitor for arrhythmias closely during device checks and consider EP referral if he has any recurrences. 2. Coronary artery disease s/p PCI/CHARLIE to RCA with recent cardiac catheterization 2018 showing patent RCA stent. He is presently stable and chest pain-free. Recent Lexiscan nuclear stress test did not show any significant ischemia. Continue current secondary prevention measures. 3. Hypertension: Well controlled 4. Hyperlipidemia: Continue statin therapy 5. Sleep apnea: Continue CPAP Okay for DC from cardiac standpoint. Follow-up in 1 month. BRENDON BILLS MD May 02, 2021 12:11
[2021-05-02] MEDS ORDERED: AMIO200T6 PO (12:54)
[2021-05-02] MEDS ORDERED: AMIODARONE HCL 200 MG TABLET. PO ONE (13:00)
--- NOTE | 2021-05-02 14:32 | PDOC ---
[employer] PROGRESS NOTE Date of Service DOS: DATE: 05/02/21 TIME: 14:15 Chief Complaint Chief Complaint AICD firing History of Present Illness History of Present Illness Patient is a 70 year old man who presents to the ED after his AICD discharged today. Has a history of ischemic cardiomyopathy with a biventricular Biotronik device that was placed at [facility] by Dr. Mcknight in 2019. He was mowing his lawn on a riding mower and then began walking uphill home when he felt his AICD fire. He denies any significant associated symptoms, including nausea, vomiting, chest pain, or shortness of breath. He has never had an AICD fired before. He went to [facility] ER for evaluation, in ED his heart rate was apparently elevated at 10/04/2012 with a wide-complex rhythm. [facility] ED physician spoke with Dr. Mcknight, who recommended starting amiodarone and transferred to [facility], [facility] does not have a Biotronik interrogater. Labs taken at [facility] showed WBC 11.4, creatinine 1.4, troponin <0.017. Upon my evaluation of [facility] patient has no complaints states he feels fine. Will admit for further medical management. 05/02/21 Patient seen and examined at bedside. D/W RN. Chart reviewed. Patient says he has felt fine since the incident. He reports "working in the [place]" with a fast heart rate when the device fired. 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 Vitals/I&O Vitals/I&O: Vital Signs Date Time Temp Pulse Resp B/P (MAP) Pulse Ox O2 Delivery O2 Flow Rate FiO2 05/02/21 13:18 68 05/02/21 11:24 159/91 05/02/21 10:49 98.0 16 97 Room Air 98.0 I & O 05/01/21 05/01/21 05/02/21 15:00 23:00 07:00 Intake Total 60 ml 400 ml Output Total 250 ml 900 ml Balance -190 ml -500 ml Physical Exam General: Alert, Oriented X3 Heart: Regular rate Abdomen: Soft Extremities: No edema Review of Systems Review of Systems: Denies pain. Denies dyspnea. Assessment and Plan Assessmemt and Plan Assessment: AICD firing. HTN. CAD. CHF. Plan: Cardiac monitoring. Appreciate subspecialist input. Monitor labs. DVT prophylaxis. Amiodarone 200mg qd po. Full code. PT/OT. Possible discharge in AM. Comment Review of Relevant I have reviewed the following items marcin (where applicable) has been applied. Medications: Current Medications Medications (Trade) Dose Ordered Sig/Neno Route PRN Reason Start Time Stop Time Status Last Admin Dose Admin Sodium Chloride 250 ml @ 75 mls/hr 1X ONCE IV 05/01/21 18:30 05/01/21 21:49 DC 05/01/21 21:03 Enoxaparin Sodium (Lovenox 40mg Syringe) 40 mg Q24H SQ 05/01/21 19:00 05/01/21 21:04 Aspirin (Amalia Aspirin) 325 mg DAILY PO 05/02/21 09:00 05/02/21 11:24 Atorvastatin Calcium (Lipitor) 40 mg DAILY PO 05/02/21 09:00 05/02/21 11:24 Metoprolol Tartrate (Lopressor) 12.5 mg DAILY PO 05/02/21 09:00 05/02/21 11:24 Sulfasalazine (Azulfidine) 1,000 mg BID PO 05/01/21 21:00 05/02/21 11:26 Terazosin HCl (Hytrin) 5 mg QHS PO 05/01/21 21:00 05/01/21 21:18 Metolazone (Zaroxolyn) 5 mg DAILY PO 05/02/21 09:00 05/02/21 11:25 Amitriptyline HCl (Elavil) 50 mg QHS PO 05/01/21 21:00 05/01/21 21:05 Pantoprazole Sodium (Protonix) 40 mg DAILYAC PO 05/02/21 07:30 05/02/21 05:39 Sacubitril/ Valsartan (Entresto 49 Mg-51 Mg) 1 tab BID PO 05/01/21 21:00 05/02/21 11:24 Amiodarone HCl 450 mg/Dextrose 259 ml @ 0 mls/hr CONT PRN IV . 05/01/21 20:15 05/02/21 01:38 Amiodarone HCl (Cordarone) 200 mg 1X ONCE PO 05/02/21 13:00 05/02/21 13:01 DC 05/02/21 13:18 Justifications for Admission Other Justification MITCH VASQUEZ III DO May 02, 2021 14:32
--- NOTE | 2021-05-02 15:04 | DS ---
DATE OF DISCHARGE: 05/02/2021 ADMITTING DIAGNOSIS: Automatic implantable cardioverter-defibrillator firing. DISCHARGE DIAGNOSIS: 1. Resolving automatic implantable cardioverter-defibrillator firing. 2. Hypertension. 3. Coronary artery disease. 4. Congestive heart failure. 5. Rheumatoid arthritis. 6. Previous cardiac stents. 7. Back surgery. 8. Neck surgery. CONSULTS: Cardiology. PROCEDURES: None. HOSPITAL COURSE: The patient is a pleasant middle-aged male who presented after his AICD fired. We admitted the patient, did serial enzymes, serial EKGs. We consulted Cardiology. We interrogated his AICD, it did indeed fire. We reset the AICD to a lower threshold. Now, the patient is doing well. Dr. Mcknight has added amiodarone. Clinically, the patient is doing well. I saw him today. I examined him, he is doing well and wants to go home. We plan to discharge. DISPOSITION: Home. ACTIVITY: As tolerated. DIET: Low sodium. DISCHARGE MEDICATIONS: Amiodarone 200 mg p.o. daily, Humira, aspirin 325 a day, atorvastatin 20 a day, hydroxychloroquine 200 b.i.d., metolazone 5 daily, metoprolol 25 daily, Protonix 40 a day, Entresto 49/51 one b.i.d., terazosin 5 at bedtime and Ultram 50 mg q. 6 hours. p.r.n. TOTAL TIME: 31 minutes. JEFF/DEVAN DR: Nataliya TID: [id number]
--- NOTE | 2021-05-02 15:59 | NUR ---
Discharge Note: TAY MUHAMMAD [facility] Discharge instructions and discharge home medications reviewed with Patient and a copy given. All questions have been answered and understanding verbalized. The following instructions and handouts were given: DISCHARGE INSTRUCTIONS, WRITTEN PRESCRIPTION (AMIODARONE), FOLLOW UP INSTRUCTIONS Discontinued lines and drains: Peripheral IV intact. Patient discharged to Home or Self Care with Family Member via Wheelchair
== END 2021-05-02 16:01 | disposition home or self-care (01) ==
LOC: INTOOBSV 17:45 → 6 SOUTH 17:45
PROVIDERS: ADMIT Family Medicine; ATTEND Family Medicine
DX: I25.5 Ischemic cardiomyopathy (principal); E78.5 Hyperlipidemia, unspecified; G47.30 Sleep apnea, unspecified; I11.0 Hypertensive heart disease with heart failure; I50.22 Chronic systolic (congestive) heart failure; I25.10 Atherosclerotic heart disease of native coronary artery without angina pectoris; I44.7 Left bundle-branch block, unspecified; M06.9 Rheumatoid arthritis, unspecified; N17.0 Acute kidney failure with tubular necrosis; Z82.49 Family history of ischemic heart disease and other diseases of the circulatory system; Z95.5 Presence of coronary angioplasty implant and graft; Z98.890 Other specified postprocedural states
CPT/HCPCS: 96365; 96366; 96372; G0378; G0379; J0282; J1650; J7050; J7060; J7030